=== PATIENT | female | born 1965 | race Caucasian/White ===

== ENCOUNTER 2019-10-25 10:55 | Emergency (ER) | payer OTHER, SELFPAY ==
[2019-10-25 11:00] VITALS: BP 158/78; PULSE 82; RESP 14; TEMP 36.8; O2SAT 99; BMI 29.5
--- NOTE | 2019-10-25 11:01 | ED.LOWEXIN ---
HPI - Extremity Injury (Lower) <Lizz Walker PA-C - Last Filed: 10/25/19 14:22> General Chief Complaint: Extremity Injury, Lower Stated Complaint: left foot injury x1 day Time Seen by Provider: 10/25/19 11:01 Source: patient Mode of arrival: Ambulatory (Crutches) Limitations: no limitations History of Present Illness HPI Narrative: Ms. Costa is a 54-year-old previously healthy female who presents to the emergency department complaining of a left foot injury that she sustained last night. She was indoors playing with her dog and throwing a ball, and she and her dachsund dog were both running when she stepped on the ball with her left foot, she heard a crack sound and had immediate pain. She did not fall, lose consciousness, or hit her head or sustain any other injuries. She took Aleve last night and this morning for the pain and she has been using crutches to ambulate, she has been unable to ambulate without significant pain, her pain is 3/10 today in the ED without movement, with weight bearing it is a 10/10+. She states she has been able to move her foot around normally in her opinion, however 1 time she had severe shooting pain up into my ankle with foot movement. She has no previous history of surgeries to her left foot, she has no recent hx of fractures. This is an isolated complaint she has no other concerns today and has been in her normal state of health. She reports she lives alone, has multiple animals to take care of. She denies numbness, tingling, swelling, or discoloration other than the bruising visible of her left foot, also denies cough, fever, shortness of breath, respiratory distress, close contact with any COVID positive patient.. Related Data Home Medications Medication Instructions Recorded Confirmed [id number] 1 tab PO PRN PRN #0 06/22/16 [Excedrin Migraine] Previous Rx's Medication Instructions Recorded celecoxib [Celebrex] 200 mg PO AMCC #30 cap 07/09/16 hydroxyzine pamoate [Vistaril] 25 mg PO Q4HP PRN #60 cap 07/09/16 ondansetron HCl [Zofran] 4 mg PO Q4HP PRN #60 tab 07/09/16 oxycodone 5 mg PO Q4HP PRN #90 tab 07/09/16 Allergies Allergy/AdvReac Type Severity Reaction Status Date / Time adhesive tape [ADHESIVE TAPE] Allergy Severe RASH, Verified 10/25/19 11:11 BLISTERS, SWELLING PAPER/SILK TAPE OK cephalexin [From KEFLEX] Allergy Severe RASH, Verified 10/25/19 11:11 BLISTERS ciprofloxacin [From CIPRO] Allergy Severe MY ARM Verified 10/25/19 11:11 LIT UP, INSTANT PAIN, BURNING, ERYTHEMA meloxicam [From MOBIC] Allergy Severe RASH, Verified 10/25/19 11:11 BLISTERS propoxyphene Allergy Unknown UNKNOWN Verified 10/25/19 11:11 [From DARVOCET-N] REACTION PER PT Review of Systems <Lizz Walker PA-C - Last Filed: 10/25/19 14:22> Review of Systems Narrative: GENERAL: Denies chills, fatigue, malaise, fever, sweats. HEENT: Denies sinus pain, ear pain, sore throat, difficulty swallowing, dizziness. RESPIRATORY: Denies dyspnea, cough, wheezing, hemoptysis, sputum. CARDIOVASCULAR: Denies chest pain, palpitations, orthopnea, edema, GASTROINTESTINAL: Denies nausea, vomiting, abdominal pain, diarrhea, constipation, melena. : Denies dysuria, frequency, incontinence, hematuria, urinary retention. MUSCULOSKELETAL: denies weakness, positive for bony pain in her left foot on the outside on both the top and bottom, increased pain with ambulation, ambulating with crutches. SKIN: Denies rash, skin lesions, positive for bruising of her left foot on the top on the left side NEUROLOGIC: Denies weakness, headache, numbness, change in speech, confusion, seizures, incoordination. PSYCHIATRIC: No concerning psychosocial issues. 12 point review of systems is negative except for those stated above Patient History <Lizz Walker PA-C - Last Filed: 10/25/19 14:22> Social History Smoking Status: Unknown if ever smoked Exam <Lizz Walker PA-C - Last Filed: 10/25/19 14:22> Narrative Exam Narrative: GENERAL: 54 year old patient appears stated age. Well-nourished, well-developed patient, in mild distress 2nd to pain. HEAD: Atraumatic. Normocephalic. EYES: Pupils equal round and reactive. Extraocular motions intact. No scleral icterus. No injection or drainage. ENT: Nose without bleeding, purulent drainage. Throat without erythema, tonsillar hypertrophy or exudate. Airway patent. NECK: Trachea midline. Non tender CARDIOVASCULAR: Regular rate and rhythm without murmurs, gallops, or rubs. RESPIRATORY: Clear to auscultation. Breath sounds equal bilaterally. No wheezes, rales, or rhonchi. GASTROINTESTINAL: Abdomen soft, non-tender, nondistended. EXTREMITIES: No edema or swelling, pedal pulses are strong and equal bilaterally, dorsalis pedis and posterior tibialis 2+, there is extreme tenderness of 5th metatarsal midshaft both on the superior and inferior portion of the foot, medial and lateral malleolus nontender with normal range of motion of the ankle, with minimal pain elicited on active ROM, tibia and fibula are nontender, range of motion of the toes is normal, however elicits some pain. Left lower extremity is negative for pallor, paresthesia, or swelling. BACK: Nontender without deformity or crepitance. No flank tenderness. NEURO: AOx3. Sensation is intact. SKIN: No rash or erythema of visible areas, there is a contusion of the left foot on the superior surface laterally, approximately 2 in x 1 1/2 inches in diameter that is blue in color Initial Vital Signs Initial Vital Signs: Vital Signs Temperature 98.2 F 10/25/19 11:00 Pulse Rate 82 10/25/19 11:00 Respiratory Rate 14 10/25/19 11:00 Blood Pressure 158/78 H 10/25/19 11:00 Pulse Oximetry 99 10/25/19 11:00 <Jax Michelle MD - Last Filed: 10/25/19 17:30> Initial Vital Signs Initial Vital Signs: Vital Signs Temperature 98.2 F 10/25/19 11:00 Pulse Rate 82 10/25/19 11:00 Respiratory Rate 14 10/25/19 11:00 Blood Pressure 158/78 H 10/25/19 11:00 Pulse Oximetry 99 10/25/19 11:00 Course <Lizz Walker PA-C - Last Filed: 10/25/19 14:22> Course Course Narrative: Patient arrived ambulating with crutches to room 6, in mild distress secondary to pain Orders Ordered: ED Orders 10/25/19 11:11 XR foot LT min 3V Stat 10/25/19 12:37 Consult to Orthopedic Surgery Stat Discontinued Medications Acetaminophen (Tylenol) 650 mg HI NOW ONE Stop: 10/25/19 11:27 Acetaminophen (Tylenol) 650 mg PO NOW ONE Stop: 10/25/19 11:33 Last Admin: 10/25/19 11:39 Dose: 650 mg Documented by: LILIAN Reevaluation(s) Reevaluation #1: Patient is requesting to know whether she will have to be casted, she is concerned because she has horses as well as 3 dogs at home she has to be able to walk to feed her horses she lives alone. Advise pending x-ray results will be consulting Ortho or splinting her. Time: 11:38 Reevaluation #2: I advised the patient regarding her fracture showed her x-ray imaging, and discussed potential outcomes of today's ED visit including splinting with Ortho follow-up, surgery, or a boot. Time: 11:59 Consultations Consultation #1: Consult to orthopedics Dr. Del Toro is on-call today, requested [employer] contact Ortho (11:48). Ultimately discussed this patient with Dr. Del Toro prior to discharge who reviewed the patient's imaging, and advised that it is appropriate to have her wear a postsurgical orthopedic shoe and minimize weight-bearing as much as possible with the use of crutches. Dr. Del Toro will follow-up with this patient as an outpatient for repeat imaging and reassessment next week. Time: 11:50 Vital Signs Vital signs: Vital Signs - 8 hr 10/25/19 11:00 10/25/19 13:30 Temperature 98.2 F Pulse Rate 82 68 Respiratory Rate 14 16 Blood Pressure 158/78 H Pulse Oximetry 99 98 <Jax Michelle MD - Last Filed: 10/25/19 17:30> Orders Ordered: ED Orders 10/25/19 11:11 XR foot LT min 3V Stat 10/25/19 12:37 Consult to Orthopedic Surgery Stat Discontinued Medications Acetaminophen (Tylenol) 650 mg HI NOW ONE Stop: 10/25/19 11:27 Acetaminophen (Tylenol) 650 mg PO NOW ONE Stop: 10/25/19 11:33 Last Admin: 10/25/19 11:39 Dose: 650 mg Documented by: LILIAN Vital Signs Vital signs: Vital Signs - 8 hr 10/25/19 11:00 10/25/19 13:30 Temperature 98.2 F Pulse Rate 82 68 Respiratory Rate 14 16 Blood Pressure 158/78 H Pulse Oximetry 99 98 MDM - Extremity Injury (Lower) <Lizz Walker PA-C - Last Filed: 10/25/19 14:22> Imaging Data Extremity x-ray #1: My Impression: I have reviewed the patient's x-ray, there is a clear midshaft Left 5th metatarsal fracture, consistent with her injury, hallux valgus At the MCP of the 1st metatarsal Radiologist's Impression: Chart Viewer Diagnostics DATE TYPE STATUS AUTHOR Hx 10/25/19 11:11 Shannan Hinkle Loi Costaace Lobo 54, F0 1965 [facility] R06 162.56cm 78.018kg BMI: 29.5kg/m? Extremity Injury, Lower Search Chart No Data to Display RASH, BLISTERS, SWELLING PAPER/SILK TAPE OK RASH, BLISTERS MY ARM LIT UP, INSTANT PAIN, BURNING, ERYTHEMA RASH, BLISTERS UNKNOWN REACTION PER PT ONSET Today 11:00 Darlyn Costa 54 F 1965 [place] [address] XRay Report Signed Patient: Darlyn Costa MMR#: [id number] : 1965Acct:[id number] Age/Sex: 54 / FDate of Service: 10/25/19 Loc: ED Accession Number: [id number] Procedure: XR foot LT min 3V Ordering Provider: Lizz Walker P.A-C PROCEDURE: XR FOOT LT MIN 3V INDICATIONS: left foot pain/bruising following trauma TECHNIQUE: 3 views of the foot were acquired. COMPARISON: None. FINDINGS: Bones: There is a comminuted, incomplete, oblique fracture of the distal fifth metatarsal shaft. No suspicious bony lesions. Metatarsus adductus and hallux valgus. Soft tissues: No tibiotalar joint effusion. Achilles tendon appears normal. Soft tissue swelling over the fifth metatarsal. IMPRESSION: Fifth metatarsal shaft fracture. Dictated by: Kaylee Hinkle M.D. on 10/25/2019 at 11:51 Approved by: Kaylee Hinkle M.D. on 10/25/2019 at 11:52 [facility] Narrative Medical decision making narrative: This is a previously healthy 54-year-old woman presented to the emergency department complaining of left foot pain and bruising. Injury was sustained while running after her dog last night in the house, stepping on a ball. X-ray is consistent with exam, she has a comminuted incomplete oblique fracture of the distal 5th metatarsal shaft of the left foot. She does not warrant ankle x-rays based on the [place] ankle rules. No other injuries found on exam. She is neurologically intact, with good circulation, there is no evidence of compartment syndrome based on exam. Consult to Ortho for further recommendations. Differential diagnosis includes metatarsal fracture of the left 5th metatarsal, strain, sprain, nerve injury, vascular injury Based on her injury with an isolated 5th metatarsal midshaft fracture, and after consultation with Dr. Del Toro, orthopedics, sending her home with orthopedic postop shoe, advised nonweightbearing as much as possible, pain control with OTC medications, and instructions for rice with orthopedic follow-up in 3-5 days, provided a work release note, encouraged her to get help from her partner or neighbor as needed for activities such as feeding her animals. Discharge Plan Departure Patient Disposition: Home Clinical Impression: Fracture of metatarsal bone of left foot Qualifiers: Encounter type: initial encounter Metatarsal bone: fifth Fracture type: closed Physeal involvement: not involving physis Qualified Code(s): S92.352A - Displaced fracture of fifth metatarsal bone, left foot, initial encounter for closed fracture Discharge Date/Time: 10/25/19 13:31 Instructions: DI for Fracture, How To Perform RICE (Rest, Ice, Compress, Elevate) Activity Restrictions/Additional Instructions: There is no evidence of an emergent or life threatening illness at this time, but follow up with the orthopedic team, Dr. Del Toro of [facility] next week is recommended nonetheless to continue to rule out serious underlying causes of your symptoms, and to take additional imaging at that time to reassess. Please call the orthopedic office for an appointment. Please return to the Emergency Department for any worsening or persistent symptoms, including increasing pain, swelling of your foot, loss of sensation or changes in sensation, pallor of your foot or ankle, numbness or tingling or any other symptoms of concern to you. Based on consultation with Orthopedics, it is acceptable for you to do some weight-bearing however for the most part you should be using crutches and minimizing any weight-bearing on your left foot. Because your fracture is comminuted it is possible that it could worsen with weight-bearing which may cause you to require surgery. Please take medications as directed. You can take tylenol and ibuprofen (or Alleve) alternating for pain. You expressed that he preferred not to take strong pain medicines and would prefer to just use zawp-wrm-[id number] medicines so I have not prescribed anything stronger for pain. As much as possible you should follow the instructions for BESSY, included an your summary and use crutches and avoid weight-bearing. I recommend that you follow-up with your primary care provider [facility], as well as seeing orthopedics next week. You may want to consider getting a bone density test done if your primary care provider believes that would be valuable for you. Prescriptions: No Action [id number]-izbqrqjxnnaer-[id number] [Excedrin Migraine] 1 EACH tablet 1 tab PO PRN PRNQty: 0 RF: 0 ondansetron HCl [Zofran] 4 MG tablet 4 mg PO Q4HP PRNQty: 60 RF: 0 oxycodone 5 MG tablet 5 mg PO Q4HP PRNQty: 90 RF: 0 hydroxyzine pamoate [Vistaril] 25 MG capsule 25 mg PO Q4HP PRNQty: 60 RF: 1 celecoxib [Celebrex] 200 MG capsule 200 mg PO AMCC Qty: 30 RF: 0 Referrals: [facility] [Outside] Seema Del Toro MD [Physician] - Stand Alone Forms: Work Release Note <Jax Michelle MD - Last Filed: 10/25/19 17:30> Cosign ED Attending Cosignature Attestation: I was immediately available in the department for consultation. This documentation has been reviewed and I agree with assessment and plan. Supervised by Jax Michelle MD
--- NOTE | 2019-10-25 11:11 | DI.RAD.S_ITS ---
PROCEDURE: XR FOOT LT MIN 3V INDICATIONS: left foot pain/bruising following trauma TECHNIQUE: 3 views of the foot were acquired. COMPARISON: None. FINDINGS: Bones: There is a comminuted, incomplete, oblique fracture of the distal fifth metatarsal shaft. No suspicious bony lesions. Metatarsus adductus and hallux valgus. Soft tissues: No tibiotalar joint effusion. Achilles tendon appears normal. Soft tissue swelling over the fifth metatarsal. IMPRESSION: Fifth metatarsal shaft fracture. Dictated by: Kaylee Hinkle M.D. on 10/25/2019 at 11:51 Approved by: Kaylee Hinkle M.D. on 10/25/2019 at 11:52
[2019-10-25] MEDS: ACETAMINOPHEN 325 MG TABLET 650 MG PO (11:39)
[2019-10-25 13:30] VITALS: PULSE 68; RESP 16; O2SAT 98
== END 2019-10-25 13:31 | disposition home or self-care (01) ==
PROVIDERS: Emergency Provider Student in an Organized Health Care Education/Training Program
DX: S92.352A Displaced fracture of fifth metatarsal bone, left foot, initial encounter for closed fracture (principal); W22.8XXA Striking against or struck by other objects, initial encounter
CPT/HCPCS: 73630; 99283; 99284

== ENCOUNTER → 2022-06-03 16:24 | Outpatient (CLI) | payer OTHER, SELFPAY ==
--- NOTE | 2022-06-03 16:26 | DI.MRI.S_ITS ---
PROCEDURE: MR HAND RT WO CON INDICATIONS: Pain in right finger(s) TECHNIQUE: Noncontrast oblique coronal T1 spin echo and T2 fast spin echo with fat saturation, axial and sagittal T2 fast spin echo with fat saturation, through the thumb. COMPARISON: [facility] Outside Film, CR, XR FINGER(S) RIGHT, 05/11/2022, 15:53. FINDINGS: Image quality: Excellent. Bones: No acute trabecular bone injury or fracture. Partial-thickness cartilage loss is seen at the 1st metacarpophalangeal joint. There is a small 1st metacarpophalangeal joint effusion. Moderate degenerative changes are seen at the 1st carpometacarpal joint. Degenerative cystic changes are seen at the 3rd metacarpal base. Nonspecific cystic changes also seen at the dorsal 2nd metacarpal head. Soft tissues: There is at least high-grade and likely complete tearing of the proximal ulnar ligament at its attachment to the 1st metacarpal head. The distal attachment appears to remain intact. The adductor aponeurosis is intact. The radial collateral ligament appears mildly heterogeneous, possibly secondary to a remote prior low-grade sprain. The extensor pollicis brevis tendon insertion onto the 1st metatarsal base is intact. The extensor pollicis longus tendon is intact. The flexor pollicis brevis and longus tendons are intact. No capsular defect is seen. IMPRESSION: 1. At least high-grade and likely complete tearing of the ulnar collateral ligament at its proximal attachment to the 1st metacarpal head. Adductor aponeurosis is intact. 2. Chronic low-grade sprain of the radial collateral ligament. 3. 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 Approved by: Jaya Hernandez M.D. on 06/04/2022 at 9:20
== END ==
PROVIDERS: Referring Provider Orthopaedic Surgery; Visit Provider Orthopaedic Surgery
DX: S53.31XA Traumatic rupture of right ulnar collateral ligament, initial encounter (principal); S63.8X1A Sprain of other part of right wrist and hand, initial encounter; M19.041 Primary osteoarthritis, right hand; M79.644 Pain in right finger(s)
CPT/HCPCS: 73218

== ENCOUNTER 2022-08-09 10:10 | Emergency (ER) | payer OTHER, SELFPAY ==
[2022-08-09 10:26] VITALS: BP 150/73; PULSE 83; RESP 18; TEMP 36.4; O2SAT 98; BMI 33.1
--- NOTE | 2022-08-09 10:31 | DI.RAD.S_ITS ---
PROCEDURE: XR ACUTE ABDOMEN SERIES INDICATIONS: constipation. no stool x 8 days. TECHNIQUE: One view chest and two views of the abdomen were acquired. COMPARISON: None. FINDINGS: Surgical changes and devices: Left-sided lower lumbar spine postoperative hardware is seen. Right upper quadrant clips are seen, which are attributed to cholecystectomy. Bilateral pelvic clips are seen. Chest: Lungs are clear. Heart size is normal. No pleural effusions. No pneumoperitoneum. Abdomen: Bowel gas pattern is normal. There is a moderate amount of stool seen within the colon. No suspicious calcifications. Visualized solid organ contours appear normal. Bones: No suspicious bony lesions. Age-appropriate bony degenerative changes are seen. Note is made of osteitis pubis, which is not considered to be frankly abnormal in a woman of this age. IMPRESSION: There is a moderate amount of stool seen within the colon, which is consistent with the given history of constipation. Postoperative and degenerative changes are seen. Dictated by: Harley Gastelum M.D. on 08/09/2022 at 10:04 Approved by: Harley Gastelum M.D. on 08/09/2022 at 10:05
[2022-08-09] MEDS: BISACODYL 10 MG SUPP PR (12:10)
[2022-08-09] MEDS: polyethylene glycoL 3350 17 GM POWD.PACK PO (12:10)
--- NOTE | 2022-08-09 12:27 | ED_ITS ---
HPI - Abdominal Pain <Tenisha Vega [facility] - Last Filed: 08/09/22 13:28> General Chief Complaint: Abdominal Pain Stated Complaint: constapation T-8 post of Thusday Time Seen by Provider: 08/09/22 11:53 Source: patient Mode of arrival: Ambulatory History of Present Illness HPI narrative: This is a 57-year-old female who has recent history of L3-4 lumbar procedure a days ago and presents for constipation, states that she did not have a bowel movement 3 days prior to this procedure and has been treating her pain with tramadol and using stool softeners as able. States that she has history of rectocele, cystocele, fistulas, and anal fissure but states that she does not have any of those complications at this time. Denies recent illness or feeling fever, chills, nausea vomiting. She is still tolerating p.o., states that she is tried bisacodyl, MiraLax and digital disimpaction but states it was difficult to do home by herself. Denies any bleeding, denies any feeling poorly, just feels bloated and states that she feels like all of the stools in her pelvis. She denies any weakness, sensation changes, or other complaint at this time, she states that she has urinary incontinence, denies dysuria urinary frequency, states that she has rectal tone and can feel the stool in her rectal vault. Related Data Home Medications Medication Instructions Recorded Confirmed [id number] 250 1 tab PO PRN PRN ##0 06/22/16 01/07/22 mg-250 mg-65 mg tablet (Excedrin Migraine) naproxen sodium 220 mg capsule 440 mg PO DAILY PRN 11/12/20 01/07/22 (Aleve) stool softner PO 11/12/20 01/07/22 Previous Rx's Medication Instructions Recorded celecoxib 200 mg capsule (Celebrex) 200 mg PO [facility] #30 caps 07/09/16 bisacodyl 10 mg rectal suppository 10 mg [place] DAILY PRN constipation 08/09/22 #12 ea ketorolac 10 mg tablet 10 mg PO Q8H PRN pain #14 tabs 08/09/22 mineral oil (Fleet Mineral Oil 118 ml [place] DAILY PRN constipation 08/09/22 enema) #133 mL pantoprazole 20 mg tablet,delayed 20 mg PO DAILY #10 tabs 08/09/22 release (Protonix) polyethylene glycol 3350 17 17 g PO BID #238 grams 08/09/22 gram/dose oral powder (Miralax) tramadol 50 mg tablet 50 mg PO BID PRN pain #10 tabs 08/09/22 Allergies Allergy/AdvReac Type Severity Reaction Status Date / Time adhesive tape [ADHESIVE TAPE] Allergy Severe RASH, Verified 08/09/22 10:31 BLISTERS, SWELLING PAPER/SILK TAPE OK cephalexin [From KEFLEX] Allergy Severe RASH, Verified 08/09/22 10:31 BLISTERS ciprofloxacin [From CIPRO] Allergy Severe MY ARM Verified 08/09/22 10:31 LIT UP, INSTANT PAIN, BURNING, ERYTHEMA meloxicam [From MOBIC] Allergy Severe RASH, Verified 08/09/22 10:31 BLISTERS propoxyphene Allergy Unknown UNKNOWN Verified 08/09/22 10:31 [From DARVOCET-N] REACTION PER PT Review of Systems <SMITA Pandya - Last Filed: 08/09/22 13:28> Review of Systems ROS Unobtainable: All systems reviewed & are unremarkable except as noted in HPI and below Patient History <SMITA Pandya - Last Filed: 08/09/22 13:28> Medical History Insomnia due to medical condition (~12/24/20) Menopause Obesity (BMI 30-39.9) Obstructive sleep apnea, adult (~12/24/20) Snoring (~12/24/20) Spinal stenosis, lumbar region Family History Family/Other Heart attack Social History Smoking Status: Former smoker Smoking Status: Former smoker alcohol intake frequency: holidays/special occasions only Substance Use Type: does not use Exam <SMITA Pandya - Last Filed: 08/09/22 13:28> Narrative Exam Narrative: Reviewed vitals signs and nursing notes. General: cooperative, comfortable, in no acute distress, well groomed HEENT: symmetrical facial expressions, moist mucous membranes Cardiovascular: regular rate and rhythm, no peripheral edema, warm extremities Respiratory: normal effort, able to speak in complete sentences, without wheezing, stridor, or abnormal breath sounds. No retractions or tachypnea. GI: abdomen soft, obese, nontender to palpation, nondistended, without masses, rebound tenderness or tenderness during exam Rectal exam with stool in the rectal vault, it is firm, this was broken up, a bisacodyl suppository was placed by myself, no palpable fissures, polyps, or exquisite pain with exam Status post manual disimpaction, she had a large bowel movement, states that she feels relieved and is ready to go home MSK: moves all extremities, neurovascularly intact, no weakness, normal tone Skin: brisk capillary refill, without pallor or erythema Neuro: normal speech and cognition, A&O x3, ambulatory, clear speech Psych: mental status is grossly normal, congruent mood, normal affect, pleasant and cooperative Initial Vital Signs Initial Vital Signs: Vital Signs Temperature 97.6 F 08/09/22 10:26 Pulse Rate 83 08/09/22 10:26 Respiratory Rate 18 08/09/22 10:26 Blood Pressure 150/73 H 08/09/22 10:26 Pulse Oximetry 98 08/09/22 10:26 Oxygen Delivery Method 08/09/22 10:26 <Jerome Murray DO - Last Filed: 08/09/22 17:30> Initial Vital Signs Initial Vital Signs: Vital Signs Temperature 97.6 F 08/09/22 10:26 Pulse Rate 83 08/09/22 10:26 Respiratory Rate 18 08/09/22 10:26 Blood Pressure 150/73 H 08/09/22 10:26 Pulse Oximetry 98 08/09/22 10:26 Oxygen Delivery Method 08/09/22 10:26 Course <SMITA Pandya - Last Filed: 08/09/22 13:28> Orders Ordered: ED Orders 08/09/22 10:31 XR acute abdomen series Stat 08/09/22 12:41 Urine Microscopic Stat Discontinued Medications Bisacodyl (Bisacodyl 10 Mg Supp) 10 mg KY NOW ONE Stop: 08/09/22 11:55 Last Admin: 08/09/22 12:10 Dose: 10 mg Documented By: MLM Ketorolac Tromethamine (Ketorolac 30 Mg/Ml Vial) 15 mg IM NOW ONE Stop: 08/09/22 12:21 Last Admin: 08/09/22 12:33 Dose: 15 mg Documented By: AMU Methocarbamol (Methocarbamol 500 Mg Tablet) 500 mg PO NOW ONE Stop: 08/09/22 12:21 Last Admin: 08/09/22 12:32 Dose: 500 mg Documented By: AMU Oxycodone/Acetaminophen (Oxycodone/Acetaminophen 5/325 Tablet) 1 tab PO NOW ONE Stop: 08/09/22 12:21 Last Admin: 08/09/22 12:33 Dose: Not Given Documented By: AYESHAU Polyethylene Glycol (Polyethylene Glycol 3350 17 Gm Powd.Pack) 17 gm PO NOW ONE Stop: 08/09/22 11:55 Last Admin: 08/09/22 12:10 Dose: 17 gm Documented By: JANIYA Sodium Biphosphate/Sodium Phosphate (Fleets Enema) 1 each KY NOW ONE Stop: 08/09/22 12:34 Vital Signs Vital signs: Vital Signs - 8 hr 08/09/22 10:26 08/09/22 13:30 Temperature 97.6 F Pulse Rate 83 86 Respiratory Rate 18 18 Blood Pressure 150/73 H 143/83 H Pulse Oximetry 98 96 Oxygen Delivery Method Room Air Room Air <Jerome Murray DO - Last Filed: 08/09/22 17:30> Orders Ordered: ED Orders 08/09/22 10:31 XR acute abdomen series Stat 08/09/22 12:41 Urine Microscopic Stat Discontinued Medications Bisacodyl (Bisacodyl 10 Mg Supp) 10 mg KY NOW ONE Stop: 08/09/22 11:55 Last Admin: 08/09/22 12:10 Dose: 10 mg Documented By: JANIYA Ketorolac Tromethamine (Ketorolac 30 Mg/Ml Vial) 15 mg IM NOW ONE Stop: 08/09/22 12:21 Last Admin: 08/09/22 12:33 Dose: 15 mg Documented By: RONNY Methocarbamol (Methocarbamol 500 Mg Tablet) 500 mg PO NOW ONE Stop: 08/09/22 12:21 Last Admin: 08/09/22 12:32 Dose: 500 mg Documented By: RONNY Oxycodone/Acetaminophen (Oxycodone/Acetaminophen 5/325 Tablet) 1 tab PO NOW ONE Stop: 08/09/22 12:21 Last Admin: 08/09/22 12:33 Dose: Not Given Documented By: AMU Polyethylene Glycol (Polyethylene Glycol 3350 17 Gm Powd.Pack) 17 gm PO NOW ONE Stop: 08/09/22 11:55 Last Admin: 08/09/22 12:10 Dose: 17 gm Documented By: MLM Sodium Biphosphate/Sodium Phosphate (Fleets Enema) 1 each [place] NOW ONE Stop: 08/09/22 12:34 Vital Signs Vital signs: Vital Signs - 8 hr 08/09/22 10:26 08/09/22 13:30 Temperature 97.6 F Pulse Rate 83 86 Respiratory Rate 18 18 Blood Pressure 150/73 H 143/83 H Pulse Oximetry 98 96 Oxygen Delivery Method Room Air Room Air MDM - Abdominal Pain <SMITA Pandya - Last Filed: 08/09/22 13:28> Lab Data Labs: Lab Results 08/09/22 Range/Units 12:41 Urine RBC 0-1/hpf (0-5/HPF) Urine WBC None seen (0-5/HPF) Ur Squamous Epith Cells 0-1 /hpf (0-5/HPF) Urine Bacteria None seen (None) Ur Culture Indicated? Cult not indicated Point of care testing: Urine Dip Bedside Urine Glucose Negative Bedside Urine Bilirubin - Negative Bedside Urine Ketone - Negative Urine Specific [place] 1.010 Bedside Urine Occult Blood +/- Bedside Urine pH 6.5 Bedside Urine Protein - Negative Bedside Urine Urobilinogen - Negative Bedside Urine Nitrite - Negative Bedside Urine Leukocytes - Negative Esterase Imaging Data Abdominal x-ray: Radiologist's Impression: PROCEDURE:? XR ACUTE ABDOMEN SERIES ? INDICATIONS:? constipation. no stool x 8 days. ? TECHNIQUE:? One view chest and two views of the abdomen were acquired.? ? COMPARISON:? None. ? FINDINGS:? ? Surgical changes and devices:? Left-sided lower lumbar spine postoperative hardware is seen.? Right upper quadrant clips are seen, which are attributed to cholecystectomy.? Bilateral pelvic clips are seen. ? Chest:? Lungs are clear.? Heart size is normal.? No pleural effusions.? No pneumoperitoneum.? ? Abdomen:? Bowel gas pattern is normal.? There is a moderate amount of stool seen within the colon.? No suspicious calcifications.? Visualized solid organ contours appear normal. Bones:? No suspicious bony lesions.? Age-appropriate bony degenerative changes are seen. Note is made of osteitis pubis, which is not considered to be frankly abnormal in a woman of this age.? ?? IMPRESSION:? There is a moderate amount of stool seen within the colon, which is consistent with the given history of constipation.? ? Postoperative and degenerative changes are seen.? ? Dictated by: Harley Gastelum M.D. on 08/09/2022 at 10:04 ? ? Approved by: Harley Gastelum M.D. on 08/09/2022 at 10:05 ? MDM Narrative Medical decision making narrative: Chief Complaint: Constipation, fecal impaction This is a 57-year-old female who has recent history of L3-4 lumbar procedure a days ago and presents for constipation, states that she did not have a bowel movement 3 days prior to this procedure and has been treating her pain with tramadol and using stool softeners as able. Differential diagnoses include but are not limited to: Bowel obstruction, fecal impaction, volvulus, perforated viscus, diverticulitis, acute cystitis, cauda equina, pyelonephritis I have reviewed the patient's vital signs and nursing notes as well as prior records if available. Pertinent lab findings reviewed: Urine dip is negative for leukocyte, blood, or other abnormality Pertinent Imaging reviewed: KUB x-ray shows moderate amount of stool in the colon with normal bowel gas pattern. Course of care: Manual disimpaction with suppository placement, MiraLax p.o., patient had a large BM, feels much better, will return for worsening symptoms, fever, chills, will continue on MiraLax b.i.d., was prescribed mineral oil enema, pain pills for her back pain-tramadol, Toradol to use as needed instead of Celebrex and she is not on naproxen currently and has no history of GI bleeding. Patient's symptoms improved over duration of stay with above-stated therapies. Social considerations that may affect disposition: none Questions are addressed and there is agreement with the plan and for follow-up. Patient is appropriate for outpatient management. MIPS: This encounter doesn't have any diagnosis' associated with MIPS criteria. <Jerome Murray DO - Last Filed: 08/09/22 17:30> Lab Data Labs: Lab Results 08/09/22 Range/Units 12:41 Urine RBC 0-1/hpf (0-5/HPF) Urine WBC None seen (0-5/HPF) Ur Squamous Epith Cells 0-1 /hpf (0-5/HPF) Urine Bacteria None seen (None) Ur Culture Indicated? Cult not indicated Point of care testing: Urine Dip Bedside Urine Glucose Negative Bedside Urine Bilirubin - Negative Bedside Urine Ketone - Negative Urine Specific [place] 1.010 Bedside Urine Occult Blood +/- Bedside Urine pH 6.5 Bedside Urine Protein - Negative Bedside Urine Urobilinogen - Negative Bedside Urine Nitrite - Negative Bedside Urine Leukocytes - Negative Esterase Discharge Plan Departure Patient Disposition: Home Clinical Impression: Fecal impaction in rectum, Constipation by delayed colonic transit Instructions: Constipation, Bisacodyl Rectal Activity Restrictions/Additional Instructions: *You have been diagnosed with constipation and fecal impaction due to delayed colonic transport. Please stay hydrated, use MiraLax morning and night until you are having consistent soft stools daily then you can reduce to 1 time daily and continue use. For difficult to expressed stool, please use a bisacodyl suppository in get it as far as you can. Please use Toradol with Protonix daily as needed for pain, safe to take with your tramadol but follow this was water and stay hydrated throughout the day. Please follow-up with your primary care provider, hold your Celebrex while taking the Toradol. *What to do: *Please continue to take your regular medications as directed. [x ] New medication prescriptions sent to your pharmacy: [ DOD] [ ] New medication written as a paper prescription [ ] No new medications given *Please follow up with your primary care provider in 2-3 days, call for an appointment. Let them know you were seen in the Emergency Department and that we asked that you be seen for follow-up. We will electronically transmit a record of today's note if your PCP is in our system *If you do not have a primary care provider please contact [phone] to establish care with one of the [facility] primary care providers. *Return to Emergency Department if you should have any new, worsening, or concerning symptoms, such as [fever greater than 101F, chills, worsening pain, persistent vomiting or other bothersome symptoms]. Prescriptions: New bisacodyl 10 mg suppository 10 mg [place] DAILY PRN (Reason: constipation) Qty: 12 0RF mineral oil [Fleet Mineral Oil] Enema 118 ml [place] DAILY PRN (Reason: constipation) Qty: 133 0RF Rx Instructions: discard any unused portion tramadol 50 mg tablet 50 mg PO BID PRN (Reason: pain) Qty: 10 0RF ketorolac 10 mg tablet 10 mg PO Q8H PRN (Reason: pain) Qty: 14 0RF pantoprazole [Protonix] 20 mg tablet,delayed release (DR/EC) 20 mg PO DAILY Qty: 10 0RF polyethylene glycol 3350 [Miralax] 17 gram/dose powder 17 g PO BID Qty: 238 0RF No Action [id number]-[id number] [Excedrin Migraine] 1 EACH tablet 1 tab PO PRN PRNQty: 0 celecoxib [Celebrex] 200 MG capsule 200 mg PO [facility] Qty: 30 0RF naproxen sodium [Aleve] 220 mg capsule 440 mg PO DAILY PRN stool softner PO Referrals: Nadine Tamayo ARNP [Primary Care Provider] - Stand Alone Forms: Patient Portal/API <Jerome Murray DO - Last Filed: 08/09/22 17:30> [facility]: Dr Murray Co-Sign Statement: I was available for consultation during this patient's emergency department visit. This chart is signed by myself for administrative purposes only. I did not have direct contact with this patient during this visit. They were seen independently by the APC.
[2022-08-09] MEDS: methocarbamoL 500 MG TABLET PO (12:32)
[2022-08-09] MEDS: KETOROLAC 30 MG/ML VIAL 15 MG IM (12:33)
[2022-08-09 13:30] VITALS: BP 143/83; PULSE 86; RESP 18; O2SAT 96
[2022-08-09 13:33] LABS: Bacteria Urine None Seen; Culture Indicated Urine Cult Not Indicated; RBC Urine 0-1/HPF (0-5/HPF); Squamous Epithelial Cell Urine 0-1 /HPF (0-5/HPF); WBC Urine None Seen (0-5/HPF)
== END 2022-08-09 13:33 | disposition home or self-care (01) ==
PROVIDERS: Emergency Provider Nurse Practitioner Critical Care Medicine; PCP Nurse Practitioner Family
DX: K59.01 Slow transit constipation (principal)
CPT/HCPCS: 74022; 81003; 81015; 96372; 99283; 99284; J1885

== ENCOUNTER 2022-08-26 06:39 | Day surgery (SDC) | payer OTHER, SELFPAY ==
[2022-08-19 08:45] VITALS: BMI 32.4
[2022-08-26 07:23] VITALS: BP 129/69; PULSE 66; RESP 14; TEMP 36.4; O2SAT 99; BMI 33.2
--- NOTE | 2022-08-26 07:27 | PM.PREOP ---
Pre-operative Note Interval Note History & Physical reviewed/Exam performed by Physician: Yes Changes to H&P: No
[2022-08-26] MEDS: LACTATED RINGERS 1,000 ML 120 ML IV ×2 (07:40→08:58)
[2022-08-26] MEDS: CLINDAMYCIN 900 MG/50 ML PIGGYBACK 50 MG IV (08:00)
--- NOTE | 2022-08-26 08:06 | SUR.OPER ---
Supine on padded OR bed, head on pillow, arms secured on padded arm boards at <90 degrees abduction, legs uncrossed, safety belt at thigh, tape over blanket over lower legs.Pt positioned per direction and supervision of Dr Vallejo.
[2022-08-26] MEDS: BUPIVACAINE 0.5% W/ EPI (PF) 30 ML VIAL INJ (08:09)
[2022-08-26 09:10] VITALS: BP 90/49; PULSE 107; RESP 17; TEMP 36.1; O2SAT 95
--- NOTE | 2022-08-26 09:12 | PM.OP.1 ---
Operative Date/Time/Diagnoses Date of procedure: 08/26/22 Time of procedure: 07:45 Pre-op diagnosis: Right thumb ulnar collateral ligament rupture Post-op diagnosis: same Procedure & Clinicians Procedure: Right thumb ulnar collateral ligament reconstruction using autograft tendon graft Same procedure as scheduled: Yes Indications: Chronic ulnar collateral ligament rupture Surgeon: Mohan Vallejo Click Yes if Unassisted: Yes Anesthesia Type: General Operative Notes Findings: Rupture of the ulnar collateral ligament Closure Type: primary Prosthetic devices, grafts, tissues, transplants, or devices: Palmaris longus autograft Applied: implant(s) (Two Arthrex screws) Estimated Blood Loss (mL): 0 Tourniquet time (min): 60 Procedure in detail: On date of Service, patient was met in the holding area where his operative site was signed and witnessed by the OR staff. The surgery is once again discussed with the patient in remaining questions or concerns he had were answered to his full satisfaction. Patient was taken back to the operating theater and placed on the operating table in a supine position. Great care was taken to ensure that all bony prominences were appropriately padded. Well-padded tourniquet was placed up along the upper extremity and a time-out was performed verifying patient's name, procedure and operative site. The upper extremity was prepped and draped in the normal sterile fashion. And Esmarch was used to exsanguinate the limb and the tourniquet was turned up to 250 mmHg. Curvilinear incision was made centered over the ulnar aspect of the MCP joint. A 15 blade was used incise the skin and fascial tissue. Bipolar electrocautery was used to achieve hemostasis. Deep knife was then used to continued sharp dissection and the aponeurosis was split giving us a good visualization of the ulnar collateral ligament. Quite a bit of thinning at the attachment at the proximal phalanx but not a complete rupture. Signs of some pseudo tendinous material. This was sharply dissected free of the proximal phalanx in the thinner more unhealthy tissue was sharply excised. Due to the poor nature of the ligamentous tissue a tendon graft was used. Small incision was made at the distal wrist crease right over the palmaris longus. Fifteen blade was used to incise through skin and fascial tissue. Blunt dissection was performed until the palmaris longus was visualized. Second incision was made about 10 cm proximal over the palmaris longus and a small portion of the palmaris longus was harvested. Two drill holes were made 1 in the metacarpal 1 in the proximal phalanx. The tendon graft as well as suture material was tenodesed in the metacarpal. This was then taken across the joint and then tenodesed in the proximal phalanx providing a stabilization of the MCP joint. This got rid of the excess laxity to the MCP joint and help stabilize the joint. The wound was then copiously irrigated. Aponeurosis was closed in the rest of the wound was closed in a layered fashion. The hand was cleaned, dried, and dressed and patient was placed into a splint. Complications: none Post-operative Condition: stable Disposition: PACU Plan for aftercare: After 2 weeks patient can be converted into a hand based thumb splint just immobilizing the MCP joint. At that point it is okay to come out of the splint just to work on flexion and extension of the MCP joint.
[2022-08-26 09:15] VITALS: BP 100/73; PULSE 100; RESP 16; TEMP 36.1; O2SAT 95
[2022-08-26 09:38] VITALS: BP 119/73; PULSE 99; RESP 16; O2SAT 99
== END 2022-08-26 10:17 | disposition home or self-care (01) ==
PROVIDERS: PCP Nurse Practitioner Family; Referring Provider Orthopaedic Surgery; Visit Provider Orthopaedic Surgery
PROC: (CPT 26540; principal; 2022-08-26 07:45)
DX: S63.641A Sprain of metacarpophalangeal joint of right thumb, initial encounter (principal)
CPT/HCPCS: 26541; C1713; J1100; J2250; J2405; J2704; J3010

== ENCOUNTER 2022-10-16 09:43 | Emergency (ER) | payer OTHER, SELFPAY ==
[2022-10-16] VITALS (50 sets, daily range): BP systolic 118–178; BP diastolic 59–111; PULSE 73–96; RESP 18–20; TEMP 36.7; O2SAT 92–99
--- NOTE | 2022-10-16 09:55 | DI.RAD.S_ITS ---
PROCEDURE: XR WRIST LT MIN 3V INDICATIONS: r/o fx TECHNIQUE: 3 views of the wrist were acquired. COMPARISON: None. FINDINGS: Bones: Acute comminuted and impacted fracture involving distal radius is seen with minimal dorsal tilting and overlapping at the fracture site. Subtle radiolucency involving distal radius adjacent to radiocarpal joint is seen suggestive of possible intra-articular extension of the fracture. Old fracture involving ulnar styloid is also seen with well corticated fragment. No suspicious bony lesions. Scaphoid view: Scaphoid is grossly intact. Soft tissues: No suspicious soft tissue calcifications. IMPRESSION: Acute comminuted, impacted and possibly a subtle intra-articular fracture of distal radius as above. Old ulnar styloid fracture. Dictated by: Julian Roblero M.D. on 10/16/2022 at 10:43 Approved by: Julian Roblero M.D. on 10/16/2022 at 10:44
--- NOTE | 2022-10-16 10:24 | ED_ITS ---
HPI - Extremity Injury (Upper) General Chief Complaint: Extremity Injury, Upper Stated Complaint: Fall, Broke Lt Wrist Time Seen by Provider: 10/16/22 09:55 Source: patient Mode of arrival: Ambulatory History of Present Illness HPI narrative: 57-year-old female former smoker with noncontributory medical history presents with a chief complaint of a left wrist fracture after a ground level fall this morning. She states that she was rushing into the house and running up some stairs when she tripped on her cowboy boots and fell forward onto an outstretched wrist. She has pain in her left wrist only which is worse with range of motion and improves with rest. She denies any numbness, tingling or weakness. She denies any head, neck or back pain. She is otherwise well and free of complaint. Related Data Home Medications Medication Instructions Recorded Confirmed [id number] 250 1 tab PO PRN PRN Migraine Headache 06/22/16 08/19/22 mg-250 mg-65 mg tablet (Excedrin ##0 Migraine) celecoxib 200 mg capsule (Celebrex) 100 mg PO DAILY PRN Pain 08/19/22 08/26/22 rizatriptan 10 mg tablet 10 mg PO Q2-4H PRN Migraine 08/19/22 08/19/22 Headache Previous Rx's Medication Instructions Recorded bisacodyl 10 mg rectal suppository 10 mg AL DAILY PRN constipation 08/09/22 #12 ea ketorolac 10 mg tablet 10 mg PO Q8H PRN pain #14 tabs 08/09/22 mineral oil (Fleet Mineral Oil 118 ml AL DAILY PRN constipation 08/09/22 enema) #133 mL polyethylene glycol 3350 17 17 g PO BID #238 grams 08/09/22 gram/dose oral powder (Miralax) celecoxib 100 mg capsule 100 mg PO BID #30 caps 10/16/22 hydrocodone 5 mg-acetaminophen 325 1 tab PO Q4-6H PRN pain #10 tabs 10/16/22 mg tablet ondansetron 4 mg disintegrating 4 mg PO TID-QID PRN nausea and 10/16/22 tablet vomiting #10 tabs Allergies Allergy/AdvReac Type Severity Reaction Status Date / Time adhesive tape [ADHESIVE TAPE] Allergy Severe RASH, Verified 08/26/22 07:21 BLISTERS, SWELLING PAPER/SILK TAPE OK cephalexin [From KEFLEX] Allergy Severe RASH, Verified 08/26/22 07:21 BLISTERS ciprofloxacin [From CIPRO] Allergy Severe MY ARM Verified 08/26/22 07:21 LIT UP, INSTANT PAIN, BURNING, ERYTHEMA meloxicam [From MOBIC] Allergy Severe RASH, Verified 08/26/22 07:21 BLISTERS propoxyphene Allergy Unknown UNKNOWN Verified 08/26/22 07:21 [From DARVOCET-N] REACTION PER PT Review of Systems Review of Systems Narrative: GENERAL: Denies chills, fatigue, malaise, fever, sweats. HEENT: Denies sinus pain, ear pain, sore throat, difficulty swallowing, dizziness. RESPIRATORY: Denies dyspnea, cough, wheezing, hemoptysis, sputum. CARDIOVASCULAR: Denies chest pain, palpitations, orthopnea, edema, GASTROINTESTINAL: Denies nausea, vomiting, abdominal pain, diarrhea, constipation, melena. : Denies dysuria, frequency, incontinence, hematuria, urinary retention. MUSCULOSKELETAL: See HPI SKIN: Denies rash, skin lesions, or other NEUROLOGIC: See HPI PSYCHIATRIC: No concerning psychosocial issues. 12 point review of systems is negative except for those stated above Patient History Medical History Anesthesia complication COVID-19 virus infection (06/2022) Insomnia due to medical condition (~12/24/20) Menopause Migraine Obesity (BMI 30-39.9) Obstructive sleep apnea, adult (~12/24/20) Snoring (~12/24/20) Spinal stenosis, lumbar region Surgical History History of ankle surgery (1979) History of arthroscopy of left shoulder History of bladder surgery History of bunionectomy of right great toe History of gynecologic surgery History of hysterectomy (~1996) History of lumbar spinal fusion (2016) Hx of cholecystectomy (~2014) Hx of foot surgery Hx of laminectomy (08/05/22) Hx of tubal ligation Family History Family/Other Heart attack Social History household members: none Smoking Status: Former smoker alcohol intake: current Smoking Status: Former smoker alcohol intake frequency: holidays/special occasions only Substance Use Type: does not use Exam Narrative Exam Narrative: GEN: AOx3 and in mild distress EYES: Pupils are equal, round, and reactive to light and accommodation. Extraoccular muscles are intact bilaterally. There is no subconjunctival hemorrhage or exudate. CHEST: Lungs are clear to auscultation bilaterally and free of wheezes, rales, or rhonchi. Heart rate is regular rhythm, there are no murmurs, clicks, rubs, or gallops. There is no chest wall tenderness. ABD: Abdomen is soft and nontender. There is no guarding or rebound. Bowel sounds are normal in all 4 quadrants. There is no mass or organomegaly. EXT: Decreased range of motion at left wrist with deformity suggestive of fracture. Neurovascularly intact distal to the injury, compartment soft, this is closed, isolated and neurovascularly intact. No pain in elbow shoulder. SKIN: Warm, pink, and dry. No erythema or rash Initial Vital Signs Initial Vital Signs: Vital Signs Temperature 98.1 F 10/16/22 09:56 Pulse Rate 79 10/16/22 09:56 Respiratory Rate 20 10/16/22 09:56 Blood Pressure 177/111 H 10/16/22 09:56 Pulse Oximetry 99 10/16/22 09:56 Oxygen Delivery Method Room Air 10/16/22 09:56 Procedures Orthopedic Fracture Reduction Fracture #1: Side: left Fracture Reduction Location: radius Analgesia: procedural sedation Technique: direct manipulation and traction/counter-traction Post Reduction X-rays Demonstrate: anatomical reduction Post-reduction neuro exam: intact Post-reduction vascular exam: intact Splint Applied: Yes Patient Tolerated Procedure: Well Orthopedic Splinting/Casting Injury #1: Side: left Upper Extremity Injury Location: wrist Upper Extremity Immobilizer: sling/shoulder immobilizer and sugar tong splint Post splinting neuro exam: intact Post splinting vascular exam: intact Placed by: Nursing Procedural Sedation Consent signed: Yes Time out performed: Yes Indication: fracture/dislocation reduction ASA Class: II Mallampati Airway Classification: Class I IV Propofol dose (mg): 130 Intraservice time/total sedation time (min): 12 ED Sedation Level: Moderate (Concious) Patient Tolerated Procedure: Well Complications: none Course Orders Ordered: ED Orders 10/16/22 09:55 XR wrist LT min 3V Stat 10/16/22 11:32 XR wrist LT 2V Stat Discontinued Medications Hydrocodone Bitart/Acetaminophen (Hydrocodone/Acet 5/325 Tablet) 2 tab PO NOW ONE Stop: 10/16/22 11:45 Last Admin: 10/16/22 11:47 Dose: 2 tab Documented By: KAIDEN Ondansetron HCl (Ondansetron 4 Mg/2 Ml Inj) 4 mg IV NOW ONE Stop: 10/16/22 11:02 Last Admin: 10/16/22 11:20 Dose: 4 mg Documented By: KAIDEN Propofol (Propofol 200 Mg/20 Ml Vial) 200 mg IV NOW ONE Stop: 10/16/22 11:02 Last Admin: 10/16/22 11:21 Dose: 200 mg Documented By: KAIDEN Consultations Consultation #1: Discussed with on-call orthopedist who has reviewed the patient's history and physical exam as well as imaging both pre and postreduction. Happy with the results, states patient is unlikely to need any surgical intervention. Vital Signs Vital signs: Vital Signs - 8 hr 10/16/22 09:56 10/16/22 10:36 10/16/22 10:38 Temperature 98.1 F Pulse Rate 79 87 79 Respiratory Rate 20 Blood Pressure 177/111 H Pulse Oximetry 99 98 99 Oxygen Delivery Method Room Air 10/16/22 10:40 10/16/22 10:40 10/16/22 10:42 Temperature Pulse Rate 78 81 Respiratory Rate Blood Pressure 178/76 H Pulse Oximetry 99 99 Oxygen Delivery Method 10/16/22 10:44 10/16/22 10:46 10/16/22 10:48 Temperature Pulse Rate 78 87 81 Respiratory Rate Blood Pressure Pulse Oximetry 99 99 99 Oxygen Delivery Method 10/16/22 10:50 10/16/22 10:50 10/16/22 10:52 Temperature Pulse Rate 85 94 H Respiratory Rate Blood Pressure 169/76 H Pulse Oximetry 99 99 Oxygen Delivery Method 10/16/22 10:54 10/16/22 10:56 10/16/22 11:11 Temperature Pulse Rate 89 86 Respiratory Rate Blood Pressure 177/81 H Pulse Oximetry 98 98 Oxygen Delivery Method 10/16/22 11:12 10/16/22 11:12 10/16/22 11:14 Temperature Pulse Rate 96 H 84 Respiratory Rate Blood Pressure 148/70 H Pulse Oximetry 92 97 Oxygen Delivery Method 10/16/22 11:15 10/16/22 11:15 10/16/22 11:16 Temperature Pulse Rate 88 82 Respiratory Rate Blood Pressure 150/72 H Pulse Oximetry 97 97 Oxygen Delivery Method 10/16/22 11:18 10/16/22 11:18 10/16/22 11:20 Temperature Pulse Rate 91 H 86 Respiratory Rate Blood Pressure 144/68 H Pulse Oximetry 98 98 Oxygen Delivery Method 10/16/22 11:21 10/16/22 11:21 10/16/22 11:22 Temperature Pulse Rate 88 89 Respiratory Rate Blood Pressure 149/68 H Pulse Oximetry 98 96 Oxygen Delivery Method 10/16/22 11:24 10/16/22 11:26 10/16/22 11:27 Temperature Pulse Rate 88 89 Respiratory Rate Blood Pressure 154/69 H Pulse Oximetry 98 99 Oxygen Delivery Method 10/16/22 11:27 10/16/22 11:28 10/16/22 11:30 Temperature Pulse Rate 92 H Respiratory Rate Blood Pressure 136/59 L 168/74 H Pulse Oximetry 97 Oxygen Delivery Method 10/16/22 11:30 10/16/22 11:32 10/16/22 11:33 Temperature Pulse Rate 94 H 93 H Respiratory Rate Blood Pressure 143/61 H Pulse Oximetry 97 94 Oxygen Delivery Method 10/16/22 11:33 10/16/22 11:34 10/16/22 11:36 Temperature Pulse Rate 92 H 89 89 Respiratory Rate Blood Pressure Pulse Oximetry 94 95 96 Oxygen Delivery Method 10/16/22 11:37 10/16/22 11:37 10/16/22 11:38 Temperature Pulse Rate 86 Respiratory Rate Blood Pressure 118/59 L 134/63 Pulse Oximetry 96 Oxygen Delivery Method 10/16/22 11:38 10/16/22 11:39 10/16/22 11:39 Temperature Pulse Rate 83 82 Respiratory Rate Blood Pressure 133/65 Pulse Oximetry 95 96 Oxygen Delivery Method 10/16/22 11:40 10/16/22 11:42 10/16/22 11:42 Temperature Pulse Rate 85 81 Respiratory Rate Blood Pressure 135/63 Pulse Oximetry 96 95 Oxygen Delivery Method 10/16/22 11:44 10/16/22 11:46 10/16/22 11:46 Temperature Pulse Rate 85 76 Respiratory Rate Blood Pressure 131/64 Pulse Oximetry 95 97 Oxygen Delivery Method 10/16/22 11:48 10/16/22 11:48 10/16/22 11:50 Temperature Pulse Rate 78 79 Respiratory Rate Blood Pressure 139/60 Pulse Oximetry 96 97 Oxygen Delivery Method 10/16/22 11:51 10/16/22 11:51 10/16/22 11:52 Temperature Pulse Rate 80 82 Respiratory Rate Blood Pressure 136/63 Pulse Oximetry 97 98 Oxygen Delivery Method 10/16/22 11:54 10/16/22 11:54 10/16/22 11:56 Temperature Pulse Rate 78 78 Respiratory Rate Blood Pressure 147/68 H Pulse Oximetry 96 97 Oxygen Delivery Method 10/16/22 11:57 10/16/22 11:57 10/16/22 11:58 Temperature Pulse Rate 73 75 Respiratory Rate Blood Pressure 127/63 Pulse Oximetry 97 96 Oxygen Delivery Method 10/16/22 12:00 10/16/22 12:00 10/16/22 12:02 Temperature Pulse Rate 76 81 Respiratory Rate Blood Pressure 147/69 H Pulse Oximetry 96 96 Oxygen Delivery Method 10/16/22 12:03 10/16/22 12:03 10/16/22 12:04 Temperature Pulse Rate 79 78 Respiratory Rate Blood Pressure 138/78 Pulse Oximetry 97 97 Oxygen Delivery Method MDM - Extremity Injury (Upper) Lab Data Labs: Point of Care Testing Test Results Not applicable MDM Narrative Medical decision making narrative: [57] year old patient presents with left wrist pain and deformity after ground level fall Multiple etiologies for patient's symptoms considered including, but not limited to: [Fracture versus dislocation versus other] Prior Charts reviewed in our EMR Primary Historian: patient Imaging reviewed: Distal radial fracture with dorsal angulation, comminution and likely articular surface involvement. Postreduction films demonstrate improved alignment Consultations: Discussed with on-call orthopedist, see details above Patient's symptoms improved over duration of stay with above-stated therapies. Findings and discharge diagnosis discussed with patient/family followed by verbalization of understanding Return precautions discussed with patient/family whom verbalize understanding of diagnosis and plan Discharge Plan Departure Patient Disposition: Home Clinical Impression: Distal radius fracture, left Instructions: DI for Distal Radius Fracture Activity Restrictions/Additional Instructions: *You have been diagnosed with [left distal radius fracture] *What to do: *Please continue to take your regular medications as directed. [x ] New medication prescriptions sent to your pharmacy: [ [facility]] [ ] New medication written as a paper prescription [x] Tylenol and occasional Motrin for pain *Please follow up with [Lennie ] of [facility] in 2-3 days, call for an appointment. Let them know you were seen in the Emergency Department and that we ask that you be seen in follow up. We will electronically transmit a record of today's note if your PCP is in our system *Return to Emergency Department if you should have any new, worsening or concerning symptoms, such as [worsening pain, significant swelling, cold extremities, numbness, tingling, weakness or other bothersome symptoms Splint Care: Keep splint clean and dry. Elevated affected body part to decrease swelling. OK to use ice pack on the affected body part. Use for 15-20 minutes each time, for 5-6x per day. If you develop worsening pain, numbness, tingling, discoloration of the affected body part, loosen the splint by loosening the DELFINO wrap, and either see your doctor for an urgent re-assessment, or return to the Emergency Department. Return to the Emergency Department for any new or worsening symptoms. You have been prescribed a short course of narcotic medications. These are potentially dangerous and addictive medications that should be used carefully. While on these medications you cannot drive or operate heavy machinery. Additionally, you cannot sign legal documents or perform any duties such as this. 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 Please understand that we cannot provide further refills of narcotics or controlled substances through the ED and your pain management will need to be through your Primary Care Provider Prescriptions: New hydrocodone-acetaminophen 5-325 mg tablet 1 tab PO Q4-6H PRN (Reason: pain) Qty: 10 0RF ondansetron 4 mg tablet,disintegrating 4 mg PO TID-QID PRN (Reason: nausea and vomiting) Qty: 10 0RF celecoxib 100 mg capsule 100 mg PO BID Qty: 30 0RF No Action Excedrin Migraine 1 EACH tablet 1 tab PO PRN PRN (Reason: Migraine Headache) Qty: 0 bisacodyl 10 mg suppository 10 mg AL DAILY PRN (Reason: constipation) Qty: 12 0RF mineral oil [Fleet Mineral Oil] Enema 118 ml AL DAILY PRN (Reason: constipation) Qty: 133 0RF Rx Instructions: discard any unused portion ketorolac 10 mg tablet 10 mg PO Q8H PRN (Reason: pain) Qty: 14 0RF polyethylene glycol 3350 [Miralax] 17 gram/dose powder 17 g PO BID Qty: 238 0RF rizatriptan 10 mg Tablet 10 mg PO Q2-4H PRN (Reason: Migraine Headache) Rx Instructions: do not exceed 3 doses per 24 hrs celecoxib [Celebrex] 200 MG capsule 100 mg PO DAILY PRN (Reason: Pain) Referrals: Nadine Tamayo ARNP [Primary Care Provider] - Stand Alone Forms: Patient Portal/API
[2022-10-16] MEDS: ONDANSETRON 4 MG/2 ML INJ IV (11:20)
[2022-10-16] MEDS: propofoL 200 MG/20 ML VIAL IV (11:21)
--- NOTE | 2022-10-16 11:32 | DI.RAD.S_ITS ---
PROCEDURE: XR WRIST LT 2V INDICATIONS: post reduction TECHNIQUE: 2 views of the wrist were acquired. COMPARISON: [facility], CR, XR WRIST LT MIN 3V, 10/16/2022, 10:21. FINDINGS: Bones: There is interval cast placement over left wrist. There is interval reduction of earlier noted comminuted and impacted distal radial fracture with improved wrist alignment. Ulnar styloid fracture is again seen and unchanged. Soft tissues: No suspicious soft tissue calcifications. IMPRESSION: Interval reduction of earlier noted impacted distal radial fracture with improved wrist alignment. No new fracture or dislocation. Dictated by: Julian Roblero M.D. on 10/16/2022 at 11:57 Approved by: Julian Roblero M.D. on 10/16/2022 at 11:59
[2022-10-16] MEDS: HYDROCODONE/ACET 5/325 TABLET 2 TAB PO (11:47)
--- NOTE | 2022-10-16 11:57 | PC.NURSE ---
Left wrist reduction procedure, tx rm 12. RT present, TOYIN physician present, RN KB and RN KS present 1120. VSS 136/59, HR91, 98% RA. Consent time 1120. Time out 1122. 50mg propofol given by physician at 1127. Additional 20mg propofol given by physician at 1128. Additional 30 mg propofol given by physician at 1130. Reduction time 1130, pt tolerated procedure well. 136/59, 94HR, 97% RA. VSS. Vitals taken every 3 mins, see EMR for VS. Pt's SO called back to room at 1245
--- NOTE | 2022-10-16 12:07 | PC.NURSE ---
Pt tolerated procedure well. VSS. Anselmo + Darrion applied @ 1960
== END 2022-10-16 12:30 | disposition home or self-care (01) ==
PROVIDERS: Emergency Provider Emergency Medicine; PCP Nurse Practitioner Family
DX: S52.502A Unspecified fracture of the lower end of left radius, initial encounter for closed fracture (principal); W18.30XA Fall on same level, unspecified, initial encounter
CPT/HCPCS: 25605; 29105; 73100; 73110; 96374; 99152; 99284; 99285; J2405; J2704

== ENCOUNTER → 2023-04-26 17:17 | Outpatient (CLI) | payer OTHER, SELFPAY ==
--- NOTE | 2023-04-26 | DI.MRI.S_ITS ---
PROCEDURE: MR SHOULDER RT WO CON INDICATIONS: rt shoulder pain TECHNIQUE: Noncontrast oblique coronal T2 fast spin echo with fat saturation, oblique sagittal T1 spin echo and T2 fast spin echo with fat saturation, axial T1 spin echo and T2 fast spin echo with fat saturation through the shoulder. COMPARISON: None. FINDINGS: Image quality: Excellent. Rotator cuff: There is moderate supraspinatus, infraspinatus and subscapularis tendinosis with low-grade partial-thickness tear primarily involving the bursal surface. No tendon retraction. Sagittal images demonstrate no rotator cuff muscle atrophy. Bones and bursae: No bone marrow contusions or fractures. Mild acromioclavicular and glenohumeral joint degeneration. The acromion demonstrates conventional anatomy, without an os acromiale. There is subcoracoid bursal fluid consistent with bursitis. Capsule and soft tissues: There is degenerative fraying in the superior and inferior labrum. The long head of the biceps tendon demonstrates normal location and morphology. The rotator interval appears normal, without fibrosis. The coracohumeral ligament is normal in thickness. IMPRESSION: 1. Moderate supraspinatus, infraspinatus and subscapularis tendinosis. 2. Subcoracoid bursitis. 3. Mild acromioclavicular and glenohumeral joint degeneration. 4. Degenerative superior and inferior labral fraying. Dictated by: Kaylee Hinkle M.D. on 04/27/2023 at 14:00 Approved by: Kaylee Hinkle M.D. on 04/27/2023 at 14:22
== END ==
PROVIDERS: PCP Nurse Practitioner Family; Referring Provider Physician Assistant; Visit Provider Physician Assistant
DX: M75.111 Incomplete rotator cuff tear or rupture of right shoulder, not specified as traumatic (principal); M19.011 Primary osteoarthritis, right shoulder; M25.511 Pain in right shoulder
CPT/HCPCS: 73221

== ENCOUNTER → 2023-06-08 07:35 | Outpatient (CLI) | payer OTHER, SELFPAY ==
[2023-06-08 08:42] LABS: Add Manual Diff / Slide Review NO; Basophils Absolute Auto 0 /uL (0-100); Basophils Percent Auto 0.7 % (0-2); Eosinophils Absolute Auto 100 /uL (0-450); Eosinophils Percent Auto 1.9 % (2-4); Hemoglobin 13.6 g/dL (12.0-16.0); Lymphocytes Absolute Auto 1800 /uL (1100-4500); Lymphocytes Percent Auto 35.4 % (25-40); Mean Corpuscular HGB Conc 34.9 % (30-36); Mean Corpuscular Hemoglobin 29.8 PG (26-34); Mean Corpuscular Volume 85.4 fL (80-100); Monocytes Absolute Auto 500 /uL (0-900); Monocytes Percent Auto 8.8 % (3-14); Neutrophils Absolute Auto 2800 /uL (1500-7000); Neutrophils Percent Auto 53.2 % (50-75); Platelet Count 330 X10^3/uL (150-400); Red Blood Cell Count 4.56 X10^6/uL (4.0-5.2); Red Cell Distribution Width 12.8 % (11.6-14.8); White Blood Cell Count 5.2 X10^3/uL (4.5-11.0)
[2023-06-08 09:13] LABS: Alanine Aminotransferase 22 IU/L (<35); Albumin 4.6 g/dL (3.5-5.0); Albumin Globulin Ratio 1.8 (1.0-2.8); Alkaline Phosphatase 74 U/L (38-126); Aspartate Aminotransferase 24 IU/L (14-36); BUN Creatinine Ratio 19.7 (6-22); Bilirubin Total 1.1 mg/dL (0.2-1.3); Blood Urea Nitrogen 13 mg/dL (7-17); Calcium 9.8 mg/dL (8.4-10.2); Carbon Dioxide 27 mmol/L (22-32); Chloride 104 mmol/L (98-107); Cholesterol 225 mg/dL (140-199); Estimated Glomerular Filt Rate > 60 mL/min (>60); Globulin 2.6 g/dL (1.7-4.1); Glucose 87 mg/dL (70-100); HDL Cholesterol 79 mg/dL (40-60); HEMOLYSIS < 15 (0-50); LDL Cholesterol Calculated 122 mg/dL (<100); Potassium 4.6 mmol/L (3.4-5.1); Sodium 139 mmol/L (137-145); Total Protein 7.2 g/dL (6.3-8.2); Triglycerides 118 mg/dL (35-150)
[2023-06-08 09:39] LABS: TSH w/ Reflex to FT4 1.02 uIU/mL (0.47-4.68)
== END ==
PROVIDERS: PCP Student in an Organized Health Care Education/Training Program; Referring Provider Student in an Organized Health Care Education/Training Program; Visit Provider Student in an Organized Health Care Education/Training Program
DX: Z00.00 Encounter for general adult medical examination without abnormal findings (principal); Z13.29 Encounter for screening for other suspected endocrine disorder
CPT/HCPCS: 36415; 80053; 80061; 84443; 85025

== ENCOUNTER → 2023-11-24 08:44 | Outpatient (CLI) | payer OTHER, SELFPAY ==
[2023-11-24 09:54] LABS: Add Manual Diff / Slide Review NO; Basophils Absolute Auto 0 /uL (0-100); Basophils Percent Auto 0.5 % (0-2); Eosinophils Absolute Auto 100 /uL (0-450); Eosinophils Percent Auto 2.3 % (2-4); Hematocrit 39.9 % (36-46); Hemoglobin 13.4 g/dL (12.0-16.0); Lymphocytes Absolute Auto 2200 /uL (1100-4500); Lymphocytes Percent Auto 35.8 % (25-40); Mean Corpuscular HGB Conc 33.5 % (30-36); Mean Corpuscular Hemoglobin 29.6 PG (26-34); Mean Corpuscular Volume 88.3 fL (80-100); Monocytes Absolute Auto 500 /uL (0-900); Neutrophils Absolute Auto 3300 /uL (1500-7000); Neutrophils Percent Auto 53.4 % (50-75); Platelet Count 351 X10^3/uL (150-400); Red Blood Cell Count 4.52 X10^6/uL (4.0-5.2); Red Cell Distribution Width 12.7 % (11.6-14.8); White Blood Cell Count 6.2 X10^3/uL (4.5-11.0)
[2023-11-24 10:15] LABS: HEMOLYSIS < 15 (0-50); Iron 121 ug/dL (37-170)
[2023-11-24 10:25] LABS: Percent Iron Saturation 42 % (15-50); Total Iron Binding Capacity 291 ug/dL (265-497); Transferrin 240 mg/dL (206-381)
[2023-11-24 10:28] LABS: Alanine Aminotransferase 40 IU/L (<35); Albumin 4.6 g/dL (3.5-5.0); Albumin Globulin Ratio 1.9 (1.0-2.8); Alkaline Phosphatase 74 U/L (38-126); Aspartate Aminotransferase 33 IU/L (14-36); Blood Urea Nitrogen 11 mg/dL (7-17); Calcium 9.1 mg/dL (8.4-10.2); Carbon Dioxide 29 mmol/L (22-32); Chloride 108 mmol/L (98-107); Estimated Glomerular Filt Rate > 60 mL/min (>60); Globulin 2.4 g/dL (1.7-4.1); Glucose 83 mg/dL (80-110); HEMOLYSIS < 15 (0-50); Magnesium 2.3 mg/dL (1.6-2.3); Potassium 4.2 mmol/L (3.4-5.1); Sodium 141 mmol/L (137-145)
[2023-11-24 11:01] LABS: Ferritin 28 ng/mL (11-264)
== END ==
LOC: LAB 08:45
PROVIDERS: PCP Student in an Organized Health Care Education/Training Program; Referring Provider Student in an Organized Health Care Education/Training Program; Visit Provider Student in an Organized Health Care Education/Training Program
DX: R42 Dizziness and giddiness (principal)
CPT/HCPCS: 36415; 80053; 82728; 83540; 83550; 83735; 84443; 85025

== ENCOUNTER 2023-12-22 12:54 | Day surgery (SDC) | payer OTHER, SELFPAY ==
[2023-12-22 13:18] VITALS: BP 129/85; PULSE 78; RESP 18; TEMP 36.6; O2SAT 99
--- NOTE | 2023-12-22 13:36 | P.HP_ITS ---
History of Present Illness History of Present Illness Date Patient Seen: 12/22/23 Time Patient Seen: 13:36 Chief complaint: Colonoscopy Narrative: Darlyn is a 58-year-old woman who is here for a colonoscopy. Her last 1 was 10 years ago and was normal. No family history of colon cancer. She does tend to get anal fissures frequently. She has had repair of rectocele and cystocele. She does have to strain frequently even though she consumes a lot of fiber. [facility] Medical History (Updated 12/22/23 @ 14:00 by Johnny Meneses MD) Vision disorder Shoulder pain Lumbar disc disease Fracture Foot pain Ankle pain Ovarian cyst (~2005) Irregular menstrual cycle (~1989) Heavy menstrual period (~1989) Fibroids (~1997) Irritable bowel syndrome Hemorrhoid (~1984) Migraine (~1983) COVID-19 virus infection (06/2022) Snoring (~12/24/20) Insomnia due to medical condition (~12/24/20) Obesity (BMI 30-39.9) Obstructive sleep apnea, adult (~12/24/20) Menopause Spinal stenosis, lumbar region Surgical History (Updated 11/21/22 @ 15:25 by Mirta Booth) Anesthesia complication Hx of laminectomy (08/05/22) History of arthroscopy of left shoulder History of lumbar spinal fusion (2016) Hx of foot surgery History of bunionectomy of right great toe History of ankle surgery (1979) History of bladder surgery History of gynecologic surgery Hx of tubal ligation History of hysterectomy (~1996) Hx of cholecystectomy (~2014) Family History (Updated 11/21/22 @ 15:26 by Mirta Booth) Family/Other Heart attack Father Heart attack Mother Heart attack Social History household members: none Smoking Status: Former smoker alcohol intake: current Meds Home Medications and Allergies Home Medications Medication Instructions Recorded Confirmed Type celecoxib 100 mg capsule 100 mg PO BID PRN pain #30 caps 06/03/23 12/22/23 Rx sodium,potassium,mag sulfates 17.5 See Rx Instructions PO .COMPLEX 10/26/23 12/12/23 Rx gram-3.13 gram-1.6 gram oral soln #354 mL (Suprep Bowel Prep Kit) acetaminophen 325 mg capsule 650 mg PO PRN PRN Pain (Scale 12/09/23 12/22/23 History (Tylenol) Score 4-6) Allergies Allergy/AdvReac Type Severity Reaction Status Date / Time adhesive tape [ADHESIVE TAPE] Allergy Severe RASH, Verified 12/22/23 13:15 BLISTERS, SWELLING PAPER/SILK TAPE OK cephalexin [From KEFLEX] Allergy Severe RASH, Verified 12/22/23 13:15 BLISTERS ciprofloxacin [From CIPRO] Allergy Severe MY ARM Verified 12/22/23 13:15 LIT UP, INSTANT PAIN, BURNING, ERYTHEMA meloxicam [From MOBIC] Allergy Severe RASH, Verified 12/22/23 13:15 BLISTERS propoxyphene Allergy Unknown UNKNOWN Verified 12/22/23 13:15 [From DARVOCET-N] REACTION PER PT gabapentin AdvReac Severe Dizziness Verified 12/22/23 13:15 topiramate AdvReac Mild Dizziness Verified 12/22/23 13:15 Exam Const General: No acute distress Resp Effort & Inspection: normal respiratory effort Assessment & Plan Assessment and plan (1) Colon cancer screening: Status: Acute Plan We reviewed the risks and benefits of colonoscopy for colon cancer screening and she would like to proceed.
[2023-12-22] MEDS: LACTATED RINGERS 1,000 ML 42 ML IV (13:40)
[2023-12-22 15:03] VITALS: BP 112/60; PULSE 76; RESP 20; TEMP 36.7; O2SAT 98
--- NOTE | 2023-12-22 15:05 | PM.OP.COLON ---
Operative Date/Time/Diagnoses Date of procedure: 12/22/23 Time of procedure: 15:05 Pre-op diagnosis: Colon cancer screening Post-op diagnosis: same Procedure & Clinicians Study performed: Colonoscopy Same procedure as scheduled: Yes Surgeon: Johnny Meneses Procedure Notes Procedure in detail: Surgeon: Johnny Meneses MD Anesthesia: Janis Thomas CRNA Procedure: The patient was brought to the endoscopy suite, placed in left lateral decubitus position. The patient was connected to monitoring devices. A time-out was performed. Sedation was administered. Once the patient was adequately sedated, a digital rectal exam was performed and was normal. The scope was then inserted and advanced to the cecum where the appendiceal orifice was identified and photographed. The scope was then slowly withdrawn over greater than 6 minutes. The mucosa was thoroughly inspected. No abnormalities were identified. The scope was retroflexed in the rectum. The scope was straightened and removed. The patient was awakened and brought to recovery. Scope withdrawal time: 6 minutes Sedation time: 15 minutes EBL: 0 Findings: Normal colon Post-procedure Recommendations: Colonoscopy in 10 years Disposition: PACU
[2023-12-22 15:08] VITALS: BP 115/57; PULSE 75; RESP 8; O2SAT 98
[2023-12-22 15:15] VITALS: BP 123/64; PULSE 67; RESP 12; TEMP 36.7; O2SAT 99
== END 2023-12-22 13:21 | disposition home or self-care (01) ==
PROVIDERS: PCP Student in an Organized Health Care Education/Training Program; Referring Provider Surgery; Visit Provider Surgery
PROC: 0DJD8ZZ Inspection of Lower Intestinal Tract, Via Natural or Artificial Opening Endoscopic (ICD-10-PCS; CPT 45378; principal; 2023-12-22 14:00)
DX: Z12.11 Encounter for screening for malignant neoplasm of colon (principal)
CPT/HCPCS: 45378; J2704

== ENCOUNTER → 2024-07-03 07:14 | Outpatient (CLI) | payer OTHER, SELFPAY ==
[2024-07-03 08:51] LABS: Alanine Aminotransferase 54 IU/L (<35); Albumin 4.7 g/dL (3.5-5.0); Albumin Globulin Ratio 1.9 (1.0-2.8); Alkaline Phosphatase 73 U/L (38-126); Aspartate Aminotransferase 38 IU/L (14-36); BUN Creatinine Ratio 25.7 (6-22); Bilirubin Total 0.9 mg/dL (0.2-1.3); Blood Urea Nitrogen 18 mg/dL (7-17); Calcium 9.6 mg/dL (8.4-10.2); Carbon Dioxide 27 mmol/L (22-32); Chloride 107 mmol/L (98-107); Cholesterol 208 mg/dL (140-199); Estimated Glomerular Filt Rate > 60 mL/min (>60); Globulin 2.5 g/dL (1.7-4.1); Glucose 82 mg/dL (80-110); HDL Cholesterol 85 mg/dL (40-60); HEMOLYSIS < 15 (0-50); LDL Cholesterol Calculated 106 mg/dL (<100); Potassium 4.3 mmol/L (3.4-5.1); Sodium 141 mmol/L (137-145); Total Protein 7.2 g/dL (6.3-8.2); Triglycerides 87 mg/dL (35-150)
[2024-07-03 08:52] LABS: HEMOLYSIS < 15 (0-50); Iron 108 ug/dL (37-170)
[2024-07-03 09:02] LABS: Percent Iron Saturation 42 % (15-50); Total Iron Binding Capacity 260 ug/dL (265-497); Transferrin 248 mg/dL (206-381)
== END ==
PROVIDERS: PCP Student in an Organized Health Care Education/Training Program; Referring Provider Student in an Organized Health Care Education/Training Program; Visit Provider Student in an Organized Health Care Education/Training Program
DX: E61.1 Iron deficiency (principal); R74.8 Abnormal levels of other serum enzymes; E78.5 Hyperlipidemia, unspecified
CPT/HCPCS: 36415; 80053; 80061; 83540; 83550